=== PATIENT | female | born 1985 | race African-American/Black ===

== ENCOUNTER 2021-02-02 09:46 | Emergency (ER) | payer MEDICAID ==
[~2021-02-02] VITALS: Ht 175.3 cm; Wt 72.6 kg
[2021-02-02 09:56] VITALS: BP_SYST 155
--- NOTE | 2021-02-02 10:01 | NUR ---
Patient to ER bed 8 to gown for evaluation. Side rails up. Report given to JIMBO SANDOVAL.
--- NOTE | 2021-02-02 10:02 | NUR ---
Sandy lerner in [facility] - 02/02/21 at 1058 by [email or web address] Pt came to ER with urinary symtpoms
--- NOTE | 2021-02-02 10:02 | NUR ---
Pt came to ER with urinary symptoms x1 week, states she is experiencing frequency, burning, cramping. Pt resting in [facility], awaiting
--- NOTE | 2021-02-02 10:10 | NUR ---
ER at bedside examining patient.
[2021-02-02 11:09] LABS: BILIRUBIN,URINE 2+ (NEGATIVE); BLOOD, URINE 3+ (NEGATIVE); GLUCOSE,URINE 1+ (NEGATIVE); KETONES,URINE 1+ (NEGATIVE); LEUKOCYTE ESTERASE ,URINE 2+ (NEGATIVE); NITRITE, URINE POSITIVE (NEGATIVE); PH,URINE 6.5 (5.0-8.0); PROTEIN URINE 3+ (NEGATIVE)
[2021-02-02 11:17] LABS: UROBILINOGEN,URINE >=8 (0.2-1.0)
[2021-02-02 11:18] LABS: CLARITY/URINE HAZY (CLEAR)
[2021-02-02 11:19] LABS: COLOR,URINE ORANGE (YELLOW)
[2021-02-02 11:20] LABS: BACTERIA,URINE MODERATE /HPF (None Seen)
[2021-02-02] MEDS ORDERED: CEPH250C PO (11:28)
[2021-02-02 11:36] VITALS: BP_SYST 155
--- NOTE | 2021-02-02 11:38 | NUR ---
Patient given written and verbal discharge instructions and verbalizes understanding. ER MD discussed with patient the results and treatment provided. Patient in stable condition. ID arm band removed. Rx of Keflex given. Patient educated on pain management and to follow up with PMD. Pain Scale 0/10. Opportunity for questions provided and answered. Medication side effect fact sheet provided.
== END 2021-02-02 11:38 | disposition home or self-care (01) ==
LOC: SED 09:46
DX: N39.0 Urinary tract infection, site not specified (principal); R30.0 Dysuria; Z79.899 Other long term (current) drug therapy
CPT/HCPCS: 81000; 81025; 87086; 99283